=== PATIENT | male | born 1980 | race Caucasian/White ===

== ENCOUNTER 2019-06-16 18:37 | Emergency (ER) | payer OTHER ==
[~2019-06-16] VITALS: Ht 172.7 cm; Wt 71.0 kg
[2019-06-16 18:52] VITALS: BP 118/76
--- NOTE | 2019-06-16 19:05 | NUR ---
PT REPORT FROM CLAIRE WYATT. PT CARE ASSUMED. PT SITTING ON CHAIR IN ED ROOM. RESP EVEN & UNLABORED, SPEECH CLEAR, SKIN WNL.
== END 2019-06-16 20:12 | disposition home or self-care (01) ==
LOC: ED 20:03
DX: S63.511A Sprain of carpal joint of right wrist, initial encounter (principal); Y08.89XA Assault by other specified means, initial encounter; Y93.89 Activity, other specified; Y92.69 Other specified industrial and construction area as the place of occurrence of the external cause; Y99.8 Other external cause status
CPT/HCPCS: 99282